=== PATIENT | female | born 1950 | race Caucasian/White ===

== ENCOUNTER 2018-03-07 15:26 | Emergency (ER) | payer MEDICARE ==
[2018-03-07 16:05] VITALS: BP 183/104
--- NOTE | 2018-03-07 16:38 | UC ---
Abdominal Pain Female HPI - HPI Summary HPI Summary: SUDDEN ONSET LAST NIGHT OF EPIGASTRIC PRESSURE. PATIENT DENIES CHEST PAIN, NAUSEA, SHORTNESS OF BREATH, SWEATS. SHE HAS TRIED PEPTO-BISMOL AND BAKING SODA AND SIPPING FLUIDS WITH NO IMPROVEMENT IN HER DISCOMFORT. SHE DENIES ANY ARM PAIN OR RADIATION THROUGH TO HER BACK. OF NOTE HER BLOOD PRESSURE WAS FOUND TO BE SIGNIFICANTLY ELEVATED AT 180-190 OVER ABOUT 100. STATES HER BLOOD PRESSURE NORMALLY RUNS SYSTOLIC 130-140. IS EXPERIENCING SOME LIFE STRESS CURRENTLY. - History of Current Complaint Chief Complaint: UCGI Stated Complaint: GI COMPLAINT Time Seen by Provider: 03/07/18 16:06 Hx Obtained From: Patient Onset/Duration: Sudden Onset, Lasting Hours, Still Present Timing: Constant Severity Initially: Moderate Severity Currently: Moderate Pain Intensity: 6 Pain Scale Used: 0-10 Numeric Location: Epigastric Radiates: No Character: Other - PRESSURE Aggravating Factor(s): Nothing Alleviating Factor(s): Nothing Associated Signs and Symptoms: Negative: Diaphoresis, Fever, Back Pain, Constipation, Urinary Symptoms, Decreased Appetite, Vaginal Bleeding, Nausea, Vomiting, Diarrhea Allergies/Adverse Reactions: Allergies Allergy/AdvReac Type Severity Reaction Status Date / Time No Known Allergies Allergy Verified 03/07/18 16:01 PMH/Surg Hx/FS Hx/Imm Hx Cardiovascular History: Hypertension - PVCs - Surgical History Surgical History: Yes Surgery Procedure, Year, and Place: RT KNEE (MENISCUS); LT CHEEK BONE; APPENDECTOMY; - Family History Known Family History: Positive: Cardiac Disease - Social History Alcohol Use: None Substance Use Type: Marijuana Substance Use Comment - Amount & Last Used: daily Smoking Status (MU): Light Every Day Tobacco Smoker Household Exposure Type: Cigarettes Review of Systems Constitutional: Negative Respiratory: Negative Cardiovascular: Negative Gastrointestinal: Abdominal Pain All Other Systems Reviewed And Are Negative: Yes Physical Exam Triage Information Reviewed: Yes Appearance: Well-Nourished, Pain Distress - APPEARS MILDLY UNCOMFORTABLE Vital Signs: Initial Vital Signs Temp 99.4 F 03/07/18 15:45 Pulse 80 03/07/18 15:45 Resp 16 03/07/18 15:45 BP 183/104 03/07/18 15:45 Pulse Ox 100 03/07/18 15:45 Vital Signs Reviewed: Yes Eyes: Positive: Conjunctiva Clear ENT: Positive: Hearing grossly normal Neck: Positive: Supple Respiratory Exam: Normal Cardiovascular Exam: Normal Abdomen Description: Positive: Nontender, Soft. Negative: Distended, Guarding Bowel Sounds: Positive: Present Musculoskeletal: Positive: No Edema Neurological: Positive: Alert Psychological: Positive: Age Appropriate Behavior Skin: Negative: rashes Diagnostics - EKG Cardiac Rate: NL - 70 BPM Cardiac Rhythm: Sinus: Normal Ectopy: PVCs ST Segment: Non-Specific - <1MM ST DEPRESSION LATERAL LEADS Abd Pain Female Course/Dx - Course Course Of Treatment: EPIGASTRIC PAIN NOT IMPROVING SINCE LAST NIGHT IN SETTING OF ELEVATED BP AND EKG WITH 1MM ST DEPRESSION LATERAL LEADS. TO [facility] [place] BY AMBULANCE. - Differential Dx/Diagnosis Provider Diagnoses: 1. EPIGASTRIC PRESSURE. 2. ELEVATED BP - Physician Notification/Consults Discussed Care of Patient With: Erickson Jaquez - TO [facility] BY AMBULANCE Time Discussed With Above Provider: 16:40 Instructed by Provider To: MD Will See In ED Discharge - Sign-Out/Discharge Documenting (check all that apply): Patient Departure All imaging exams completed and their final reports reviewed: No Studies - Discharge Plan Condition: Stable Disposition: TRANS HIGHER LVL OF CARE FAC Referrals: Ann Girard NP [Primary Care Provider] - - Billing Disposition and Condition Condition: STABLE Disposition: Trans Higher Lvl of Care Fac
== END 2018-03-07 17:17 | disposition short-term general hospital (02) ==
LOC: UCEAST 15:26
DX: R03.0 Elevated blood-pressure reading, without diagnosis of hypertension (principal); F17.210 Nicotine dependence, cigarettes, uncomplicated
CPT/HCPCS: 93005; 99213; G0463

== ENCOUNTER 2018-03-07 17:41 | Observation (INO) | payer MEDICARE ==
[2018-03-07] MEDS ORDERED: Aspirin 81 mg CHEW TAB* 81 MG TAB.CHEW PO ONE (18:38)
[2018-03-07] MEDS ORDERED: Nitroglycerin 2% OINT* 1 GM PAK TOPICAL ONE (18:38)
--- NOTE | 2018-03-07 18:40 | ED ---
HPI Chest Pain - HPI Summary HPI Summary: Pt is a 67 y/o female BIBA who presents to the ED c/o chest pressure since last night at 20:00. She denies any chest pain, but states shes had constant mid- epigastric pressure. Pt denies any dizziness, SOB, PA, N/V, or abdominal pain. She had a cardiac catheterization in 2010, but has never had a stress test. PMHx HTN and CAD, but denies any DM or gastric ulcers. Denies PSHx of cholecystectomy. She is a smoker. - History of Current Complaint Chief Complaint: EDChestPainROMI Time Seen by Provider: 03/07/18 18:18 Hx Obtained From: Patient Onset/Duration: Started Days Ago - Last night at 20:00, Still Present Timing: Constant Current Severity: None Pain Intensity: 0 Pain Scale Used: 0-10 Numeric Chest Pain Location: Mid Sternal - Epi-gastric Chest Pain Radiates: No Character: Pressure/Squeezing Aggravating Factor(s): Nothing Alleviating Factor(s): Nothing Associated Signs and Symptoms: Negative: Chest Pain, Shortness of Breath, Nausea , Abdominal Pain, Vomiting - Allergy/Home Medications Allergies/Adverse Reactions: Allergies Allergy/AdvReac Type Severity Reaction Status Date / Time No Known Allergies Allergy Verified 03/07/18 16:01 Home Medications: Home Medications Albuterol HFA INHALER* [Ventolin HFA Inhaler*] 1 - 2 puff INH Q4HR PRN 03/07/18 [History Confirmed 03/07/18] PMH/Surg Hx/FS Hx/Imm Hx Endocrine/Hematology History: Denies: Hx Diabetes Cardiovascular History: Reports: Hx Coronary Artery Disease, Hx Hypertension GI History: Denies: Other GI Disorders - Gastric ulcers Musculoskeletal History: Denies: Hx Osteoporosis - Cancer History Hx Chemotherapy: No Hx Radiation Therapy: No - Surgical History Surgery Procedure, Year, and Place: RT KNEE (MENISCUS); LT CHEEK BONE; APPENDECTOMY; Infectious Disease History: No Infectious Disease History: Denies: Traveled Outside the [place] in Last 30 Days - Family History Known Family History: Positive: Cardiac Disease - Social History Alcohol Use: None Hx Substance Use: Yes Substance Use Type: Reports: Marijuana Substance Use Comment - Amount & Last Used: daily Hx Tobacco Use: Yes Smoking Status (MU): Light Every Day Tobacco Smoker Amount Used/How Often: 5 cigs/day Review of Systems Positive: Other - Chest pressure. Negative: Chest Pain Negative: Shortness Of Breath Negative: Abdominal Pain, Vomiting, Nausea Neurological: Other - NEGATIVE: dizziness All Other Systems Reviewed And Are Negative: Yes Physical Exam - Summary Physical Exam Summary: Appearance: Well appearing, no pain distress Skin: warm, dry, reflects adequate perfusion Head/face: normal Eyes: EOMI, ALCIRA ENT: normal Neck: supple, non-tender Respiratory: CTA, breath sounds present Cardiovascular: RRR, pulses symmetrical Abdomen: non-tender, soft Bowel: present Musculoskeletal: normal, strength/ROM intact Neuro: normal, sensory motor intact, A&Ox3 Triage Information Reviewed: Yes Vital Signs On Initial Exam: Initial Vitals Temp Pulse Resp BP Pulse Ox 98.3 F 68 16 150/86 100 03/07/18 18:05 03/07/18 18:05 03/07/18 18:05 03/07/18 18:05 03/07/18 18:05 Vital Signs Reviewed: Yes Diagnostics - Vital Signs Vital Signs Temp Pulse Resp BP Pulse Ox 03/07/18 18:05 98.3 F 68 16 150/86 100 - Laboratory Result Diagrams: 03/07/18 18:43 03/07/18 18:43 Lab Statement: Any lab studies that have been ordered have been reviewed, and results considered in the medical decision making process. - Radiology CXR Xray Interpretation: No Acute Changes - No active cardiopulmonary disease. Pending official radiology report. Radiology Interpretation Completed By: ED Physician - EKG 18:50 Cardiac Rate: NL - 62 bpm EKG Rhythm: Sinus Rhythm EKG Interpretation: ST depression in inferior leads Chest Pain Course/Dx - Course Course Of Treatment: Pt is a 67 y/o female BIBA who presents to the ED c/o chest pressure since last night at 20:00. She denies any chest pain, but states shes had constant mid-epigastric pressure. Pt denies any dizziness, SOB, PA, N /V, or abdominal pain. She had a cardiac catheterization in 2010, but has never had a stress test. PMHx HTN and CAD, but denies any DM or gastric ulcers. She is a smoker. A physical exam was normal. A CXR was negative. An EKG revealed a rate of [address] depression in inferior leads. Final dx is unstable angina. Dr. Jimenez accepts pt for admission. Pt is agreeable with this plan. - Chest Pain Differential Diagnosis/HQI/PQRI: ACS, Angina, Other: - unstble angina - Diagnoses Provider Diagnoses: Unstable angina - Provider Notifications Discussed Care Of Patient With: Speedy Jimenez Time Discussed With Above Provider: 20:02 Instructed by Provider To: Admit As Inpatient - Critical Care Time Critical Care Time: 30-74 min Discharge - Sign-Out/Discharge Documenting (check all that apply): Patient Departure - Admit - Discharge Plan Condition: Stable Disposition: ADMITTED TO [facility] Referrals: Ann Girard NP [Primary Care Provider] - - Billing Disposition and Condition Condition: STABLE Disposition: Admitted to [facility] - Attestation Statements Document Initiated by Comfortibe: Yes Documenting Scribe: Twila Gottlieb Provider For Whom Parrishe is Documenting (Include Credential): Gabino Carey MD Scribe Attestation: Twila Kaur, scribed for Gabino Carey MD on 03/07/18 at 2009. Scribe Documentation Reviewed: Yes Provider Attestation: The documentation as recorded by the Twila fall accurately reflects the service I personally performed and the decisions made by , Gabino Carey MD
[2018-03-07 18:55] LABS: ABS Basophils 0 10^3/ul (0-0.2); ABS Eosinophils 0.1 10^3/ul (0-0.6); ABS Lymphocytes 2.4 10^3/ul (1.0-4.8); ABS Monocytes 0.5 10^3/ul (0-0.8); ABS Neutrophils 4.3 10^3/ul (1.5-7.7); ABS Nucleated RBC 0 10^3/ul; Eosinophil % 0.9 % (0-6); Hematocrit 40 % (35-47); Hemoglobin 13.5 g/dl (12.0-16.0); Lymphocyte % 32.6 % (25-47); Mean Corpuscular HGB Conc 34 g/dl (31-36); Mean Corpuscular Hemoglobin 30 pg (27-31); Mean Corpuscular Volume 87 fL (80-97); Mean Platelet Volume 7.8 um3 (7.4-10.4); Nucleated Red Blood Cells % 0.1; Platelet Count 262 10^3/ul (150-450); Red Blood Count 4.57 10^6/ul (4.00-5.40); Red Cell Distribution Width 14 % (10.5-15); White Blood Count 7.3 10^3/ul (3.5-10.8)
[2018-03-07 19:03] LABS: INR 0.92 (0.77-1.02)
[2018-03-07 19:12] LABS: EGFR Non-African American 70.1 (>60)
[2018-03-07] MEDS ORDERED: Heparin DRIP 25,000 UNITS(*) 25,000 UNITS/500 ML BAG IV SCH (19:45)
[2018-03-07] MEDS ORDERED: Metoprolol Tartrate TAB* 25 MG PO ONE (20:05)
[2018-03-07] MEDS ORDERED: Acetaminophen TAB* 325 MG PO PRN (20:14)
[2018-03-07] MEDS ORDERED: Melatonin 3 MG TAB PO PRN (20:14)
[2018-03-07] MEDS ORDERED: Ondansetron ODT TAB* 4 MG PO PRN (20:14)
[2018-03-07] MEDS ORDERED: NS 0.9% 1000 ML* 1,000 ML IV SCH (20:15)
[2018-03-07] MEDS ORDERED: Albuterol HFA INHALER* 8 gm MDI INH PRN (20:18)
[2018-03-07] MEDS ORDERED: Heparin DRIP 25,000 UNITS(*) 25,000 UNITS/500 ML BAG IVPB SCH (20:30)
--- NOTE | 2018-03-07 20:59 | HP ---
H&P (Free Text) History and Physical: PCP: Arnaud Girard NP Date/Time: 2009 CC: epigastric pain HPI: Mrs Eaton is a 67YO female smoker HX HTN who experienced the onset of non- radiating epigastric pressure Tuesday evening ~2000 which was ~2 hours after eating. It has been continuous, significantly disrupting her sleep last night, has not responded to OTC treatments such as bismuth subsalicylate. There is no exacerbating or alleviating factors. There has been no SOB, N/V, sweating, palpitations, or light-headedness. No change in bowel/bladder. She presented to urgent care this afternoon where an ECG showed concerning changes of mild ST depressions in the infero-lateral distribution prompting referral for further evaluation. 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 Father passed in his 80s 2nd CVA. ROS: as above, otherwise reviewed and all were negative vitals: Vital Signs Temp 36.8 C 03/07/18 18:05 Pulse 60 03/07/18 21:00 Resp 14 03/07/18 21:00 BP 184/109 03/07/18 21:00 Pulse Ox 97 03/07/18 21:00 Intake & Output 03/06/18 03/07/18 03/07/18 23:59 11:59 23:59 Weight 56.699 kg Constitutional: NAD, normally developed, well-nourished white female HEENM: atraumatic; sclera/conjunctiva: anicteric/clear; hearing: clinically intact; oropharynx: clear, mucosa moist Neck: soft tissue: non-tender; thyroid: normal Pulmonary: clear to auscultation bilaterally, good aeration, no accessory muscle use CV: RR/RR, normal S1S2, no carotid bruit, no jugular venous distention, 2+ B DP/ PT, no edema Abdominal: soft, non-distended, non-tender, no rebound/guarding/rigidity, normoactive bowel sounds, no hepatosplenomegaly or masses, no costovertebral angle tenderness Musculoskeletal: general: grossly intact, non-tender Integumental: normal appearance and texture of exposed skin Psychiatric orientation: AA&O to PPS affect: calm mood: cooperative eye contact: fair content: reliable responses: timely insight: good Testing: Lab Results 03/07/18 03/07/18 03/07/18 Range/Units 18:43 18:43 18:43 WBC 7.3 (3.5-10.8) 10^3/ul RBC 4.57 (4.00-5.40) 10^6/ul Hgb 13.5 (12.0-16.0) g/dl Hct 40 (35-47) % MCV 87 (80-97) fL MCH 30 (27-31) pg MCHC 34 (31-36) g/dl RDW 14 (10.5-15) % Plt Count 262 (150-450) 10^3/ul MPV 7.8 (7.4-10.4) um3 Neut % (Auto) 59.4 (38-83) % Lymph % (Auto) 32.6 (25-47) % Ware % (Auto) 6.5 (0-7) % Eos % (Auto) 0.9 (0-6) % Baso % (Auto) 0.6 (0-2) % Absolute Neuts (auto) 4.3 (1.5-7.7) 10^3/ul Absolute Lymphs (auto) 2.4 (1.0-4.8) 10^3/ul Absolute Monos (auto) 0.5 (0-0.8) 10^3/ul Absolute Eos (auto) 0.1 (0-0.6) 10^3/ul Absolute Basos (auto) 0 (0-0.2) 10^3/ul Absolute Nucleated RBC 0 10^3/ul Nucleated RBC % 0.1 INR (Anticoag Therapy) 0.92 (0.77-1.02) APTT 30.0 (26.0-36.3) seconds Sodium 139 (135-145) mmol/L Potassium 3.5 (3.5-5.0) mmol/L Chloride 105 (101-111) mmol/L Carbon Dioxide 25 (22-32) mmol/L Anion Gap 9 (2-11) mmol/L BUN 13 (6-24) mg/dL Creatinine 0.81 (0.51-0.95) mg/dL Est GFR ( Amer) 84.8 (>60) Est GFR (Non-Af Amer) 70.1 (>60) BUN/Creatinine Ratio 16.0 (8-20) Glucose 94 (70-100) mg/dL Lactic Acid (0.5-2.0) mmol/L Calcium 9.3 (8.6-10.3) mg/dL Magnesium 1.8 L (1.9-2.7) mg/dL Total Bilirubin 0.40 (0.2-1.0) mg/dL AST 16 (13-39) U/L ALT 11 (7-52) U/L Alkaline Phosphatase 54 (34-104) U/L Troponin I 0.00 (<0.04) ng/mL B-Natriuretic Peptide ( - 100) pg/mL Total Protein 6.8 (6.4-8.9) g/dL Albumin 4.0 (3.2-5.2) g/dL Globulin 2.8 (2-4) g/dL Albumin/Globulin Ratio 1.4 (1-3) 03/07/18 03/07/18 Range/Units 18:43 18:43 WBC (3.5-10.8) 10^3/ul RBC (4.00-5.40) 10^6/ul Hgb (12.0-16.0) g/dl Hct (35-47) % MCV (80-97) fL MCH (27-31) pg MCHC (31-36) g/dl RDW (10.5-15) % Plt Count (150-450) 10^3/ul MPV (7.4-10.4) um3 Neut % (Auto) (38-83) % Lymph % (Auto) (25-47) % Ware % (Auto) (0-7) % Eos % (Auto) (0-6) % Baso % (Auto) (0-2) % Absolute Neuts (auto) (1.5-7.7) 10^3/ul Absolute Lymphs (auto) (1.0-4.8) 10^3/ul Absolute Monos (auto) (0-0.8) 10^3/ul Absolute Eos (auto) (0-0.6) 10^3/ul Absolute Basos (auto) (0-0.2) 10^3/ul Absolute Nucleated RBC 10^3/ul Nucleated RBC % INR (Anticoag Therapy) (0.77-1.02) APTT (26.0-36.3) seconds Sodium (135-145) mmol/L Potassium (3.5-5.0) mmol/L Chloride (101-111) mmol/L Carbon Dioxide (22-32) mmol/L Anion Gap (2-11) mmol/L BUN (6-24) mg/dL Creatinine (0.51-0.95) mg/dL Est GFR ( Amer) (>60) Est GFR (Non-Af Amer) (>60) BUN/Creatinine Ratio (8-20) Glucose (70-100) mg/dL Lactic Acid 0.7 (0.5-2.0) mmol/L Calcium (8.6-10.3) mg/dL Magnesium (1.9-2.7) mg/dL Total Bilirubin (0.2-1.0) mg/dL AST (13-39) U/L ALT (7-52) U/L Alkaline Phosphatase (34-104) U/L Troponin I (<0.04) ng/mL B-Natriuretic Peptide 79 ( - 100) pg/mL Total Protein (6.4-8.9) g/dL Albumin (3.2-5.2) g/dL Globulin (2-4) g/dL Albumin/Globulin Ratio (1-3) ECG, personally reviewed: NSR rate 62, mild infero-lateral ST depressions new compared to 2011 CXR, personally reviewed: no acute process Impression: 67F smoker HX HTN presents with epigastric pressure and abnormal ECG DIAGNOSIS & PLAN Primary unstable angina : aspirin : metoprolol : nitropaste : heparin GTT : telemetry : trend troponin : GI cocktail : exercise NST in AM : supplemental oxygen : supportive care tobacco & marijuana use : recommend cessation Secondary HTN : continue losartan : PRN hydralazine IV Admission Rational: inpatient for management of unstable angina as without the above interventions risk of short-term adverse event is unacceptably high; inappropriate for outpatient setting DVTp: heparin GTT Code Status: full HCP: Judy kong Critical Care time: 35minutes with >50% spent at the bedside obtaining a history , performing the examination, advising of diagnosis & treatment options along with risks/benefits/reasoning; remainder spent discussing with ER MD, reviewing labs and radiology exams, performing documentation
[2018-03-07] MEDS: Heparin VIAL(*) 5000 UNITS/ML VIAL (FIVE THOUSAND) IV SCH (21:10)
[2018-03-07] MEDS ORDERED: LORazepam TAB(*) 0.5 MG PO PRN (21:13)
[2018-03-07] MEDS ORDERED: Lidocaine 2% VISCOUS* 15 ML UDC PO ONE (21:14)
[2018-03-07] MEDS ORDERED: Al Hydrox/Mg Hydrox/Simet LIQ* 30 ML UDC PO ONE (21:14)
[2018-03-07] MEDS: Docusate CAP* 100 MG PO SCH (23:28)
[2018-03-07] MEDS: Nitroglycerin 2% OINT* 1 GM PAK TOPICAL SCH (23:28)
[2018-03-08] MEDS: Nitroglycerin 2% OINT* 1 GM PAK TOPICAL SCH ×2 (04:29→12:07)
[2018-03-08] MEDS ORDERED: Omeprazole CAP* 20 MG PO SCH (06:00)
--- NOTE | 2018-03-08 07:05 | RAD ---
INDICATION: Chest pain. COMPARISON: Comparison is made with a prior study from January 14, 2011. TECHNIQUE: A portable view of the chest was obtained. FINDINGS: Cardiac and mediastinal contours appear to be within normal limits. There is bilateral apical apical pleural-parenchymal scarring which appears similar to the prior exam. The lungs are otherwise clear. No pleural effusion or pneumothorax is seen. IMPRESSION: NO EVIDENCE FOR ACUTE DISEASE. R1
[2018-03-08 07:42] VITALS: BP 136/75
[2018-03-08 08:09] LABS: ABS Basophils 0 10^3/ul (0-0.2); ABS Eosinophils 0.1 10^3/ul (0-0.6); ABS Lymphocytes 2.3 10^3/ul (1.0-4.8); ABS Monocytes 0.5 10^3/ul (0-0.8); ABS Neutrophils 5.2 10^3/ul (1.5-7.7); ABS Nucleated RBC 0 10^3/ul; Eosinophil % 1.2 % (0-6); Hematocrit 37 % (35-47); Hemoglobin 12.6 g/dl (12.0-16.0); Lymphocyte % 28.6 % (25-47); Mean Corpuscular HGB Conc 34 g/dl (31-36); Mean Corpuscular Hemoglobin 30 pg (27-31); Mean Corpuscular Volume 87 fL (80-97); Mean Platelet Volume 7.9 um3 (7.4-10.4); Nucleated Red Blood Cells % 0; Platelet Count 229 10^3/ul (150-450); Red Blood Count 4.25 10^6/ul (4.00-5.40); Red Cell Distribution Width 14 % (10.5-15); White Blood Count 8.2 10^3/ul (3.5-10.8)
[2018-03-08] MEDS: Docusate CAP* 100 MG PO SCH (08:17)
[2018-03-08] MEDS ORDERED: Losartan TAB* 25 MG PO SCH (09:00)
[2018-03-08] MEDS ORDERED: Aspirin EC TAB* 81 MG TAB.EC PO SCH (09:00)
[2018-03-08] MEDS: Heparin VIAL(*) 5000 UNITS/ML VIAL (FIVE THOUSAND) IV SCH (09:13)
--- NOTE | 2018-03-08 12:06 | RAD ---
Indication: Unstable angina. Myocardial perfusion scan was performed utilizing 1 day protocol. Rest myocardial perfusion was performed after intravenous injection of 10.3 mCi of technetium 99 and tetrofosmin. Treadmill stress study was performed and 26.6 mCi of technetium 99 and tetrofosmin was injected for the stress portion of the study. The maximum heart rate achieved is 91% of the maximum predicted value. There is homogeneous distribution of the radiotracer throughout the left ventricle. There is no evidence of any fixed or reversible perfusion defects identified. The ejection fraction at stress is 66%. Evaluation of wall motion demonstrates no focal wall motion abnormality. IMPRESSION: No evidence of fixed or reversible perfusion defect. Normal ejection fraction. ASSESSMENT: Low risk Based on imaging criteria from ACC/AHA 2002 Guideline Update for the Management of Patients With Chronic Stable Angina Table 23. Noninvasive Risk Stratification.
--- NOTE | 2018-03-10 06:55 | DS ---
CC: Ann Girard NP * DISCHARGE SUMMARY: DATE OF ADMISSION: 03/07/18. DATE OF DISCHARGE: 03/08/18. PRIMARY CARE PROVIDER: Ann Girard NP. DISCHARGE DIAGNOSIS: Atypical chest pain, suspect gastrointestinal in nature. SECONDARY DIAGNOSES: 1. Hypertension. 2. Seasonal allergies. 3. Premature ventricular contractions. 4. Tobacco abuse. MEDICATION LIST: 1. Albuterol HFA 1 to 2 puffs inhaled q.4 hours p.r.n. shortness of breath. 2. Losartan 50 mg p.o. daily. New medication: 1. Famotidine 20 mg p.o. daily. HOSPITAL COURSE: Mrs. Eaton is a 67-year-old lady with a past medical history stated above that presented to the emergency room with complaints of epigastric pressure that had started the night prior to admission about 2 hours after eating. She tried [id number] medications with no improvement. The next day as her symptoms persisted, she went to urgent care for further evaluation and was then referred to the emergency room due to EKG changes. For more details about her presentation, I refer you to her history and physical. In the emergency room, the patient had a chest x-ray that showed no evidence for acute disease and an EKG that showed mild inferolateral ST depressions and they were new when compared to her prior EKG from 2010. She was admitted to the medical floor where she had serial troponins that were negative despite persistent epigastric pressure. She underwent nuclear medicine stress test and showed no evidence of fixed or reversible perfusion defect and a normal ejection fraction. The impression is that her symptoms could be GI in nature. So the plan is to add famotidine but if her symptoms persist, she may need further GI workup including endoscopy and left upper quadrant ultrasound to investigate her gallbladder. Of note, is the fact that her LFTs were normal during her admission. At this point, the patient has had resolution on her symptoms and she is medically stable for discharge. PHYSICAL EXAMINATION: Vital Signs: Temperature 98.2, heart rate 67, respiratory rate is 20, oxygen saturation is 95% on room air, blood pressure is 136/75. General: The patient is a pleasant lady, sitting up in bed, in no acute distress. CVS: Normal S1, S2. Regular rate and rhythm. Chest: Breath sounds present bilaterally with no added sounds. Abdomen is soft. Bowel sounds are present. Extremities: No edema. Neuro: She is alert and oriented x3, able to move all 4 extremities. DIET: Heart-healthy diet. ACTIVITY: As tolerated. The patient received education about episodes of chest pain and was advised about the symptoms that would prompt her return to the emergency room. The patient was also encouraged about tobacco cessation and she will discuss this further with her primary care provider. TIME SPENT: Approximately 45 minutes were spent to complete this discharge. [id number]/[facility] #: [id number] JOSH
== END 2018-03-08 14:20 | disposition home or self-care (01) ==
LOC: ED 17:41 → MEDTELE 20:12
PROVIDERS: ADMIT Hospitalist; ATTEND Internal Medicine
DX: I20.0 Unstable angina (principal); R07.89 Other chest pain; I10 Essential (primary) hypertension; I49.3 Ventricular premature depolarization; R00.1 Bradycardia, unspecified; J30.9 Allergic rhinitis, unspecified; F17.210 Nicotine dependence, cigarettes, uncomplicated; Z79.899 Other long term (current) drug therapy
CPT/HCPCS: 36415; 71045; 78452; 80053; 83605; 83735; 83880; 84484; 85025; 85610; 85730; 93005; 93017; 96372; 96374; 99285; A9270-GY; A9502; G0378; J1644